=== PATIENT | female | born 1950 | race Caucasian/White ===

== ENCOUNTER 2020-07-26 22:13 | Emergency (ER) | payer MEDICARE ==
[~2020-07-26] VITALS: Ht 167.6 cm; Wt 74.8 kg
--- NOTE | 2020-07-26 22:16 | Emergency Department Note ---
History of Present Illnes History of Present Illness History of Present Illness This is a 70 year old female presents to the ED after her walker sliced the L: lower leg agt 2200 today. . Historian: Patient, Family Member Arrival Mode: Car Onset (how long ago): minute(s) Location: left leg Severity: moderate Onset quality: sudden Duration (how long): hour(s) Timing of current episode: constant Progression: unchanged Chronicity: new Context: Reports trauma/injury Relieving factors: none Exacerbating factors: none Associated symptoms: Reports denies other symptoms Treatments prior to arrival: none Past Medical/Family History Physician Review I have reviewed the patient's past medical and family history. Any updates have been documented here. Past Medical History Recent Fever: No Clinical Suspicion of Infectio: No New/Unexplained Change in Ment: No Past Medical History: Hypertension, [place], Hypothyroidism, Hyperlipedemia, Osteoarthritis Other Medical History: INESSA Past Surgical History: PCI Other Surgery: PCI WITH STENTS IN 05/2019 Social History Smoking Cessation: Never Smoker Alcohol Use: None Any Illegal Drug Use: No Other Last Tetanus: UNKNOWN Review of Systems Review of Systems Constitutional: Reports no symptoms EENTM: Reports no symptoms Cardiovascular: Reports no symptoms Respiratory: Reports no symptoms Gastrointestinal: Reports no symptoms Genitourinary: Reports no symptoms Musculoskeletal: Reports no symptoms Integumentary: Reports no symptoms Neurological: Reports no symptoms Psychological: Reports no symptoms Endocrine: Reports no symptoms Hematological/Lymphatic: Reports no symptoms Physical Exam Related Data Allergies: Coded Allergies: sulfamethoxazole (Verified Allergy, Mild, RASH, 09/12/19) trimethoprim (Verified Allergy, Mild, RASH, 09/12/19) Physical Exam CONSTITUTIONAL Constitutional: Present well-developed, Present well-nourished HENT HENT: Present normocephalic, Present atraumatic, Present oropharynx clear/moist, Present nose normal HENT L/R: Present left ext ear normal, Present right ext ear normal EYES Eyes: Reports PERRL, Reports conjunctivae normal NECK Neck: Present ROM normal PULMONARY Pulmonary: Present effort normal, Present breath sounds normal CARDIOVASCULAR Cardiovascular: Present regular rhythm, Present heart sounds normal, Present capillary refill normal, Present normal rate GASTROINTESTINAL Abdominal: Present soft, Present nontender, Present bowel sounds normal GENITOURINARY Genitourinary: Present exam deferred SKIN Skin: Present other (13 cm v shaped laceration with lateral border skin avulsion. Div[place]/skin avulsion medial 1 cm in diameter) MUSCULOSKELETAL Musculoskeletal: Present ROM normal NEUROLOGICAL Neurological: Present alert, Present oriented x 3, Present no gross motor or sensory deficits PSYCHOLOGICAL Psychological: Present mood/affect normal, Present judgement normal Procedures Laceration Laceration: Laceration 1 Site: lower extremity Side: left Size (cm): 13 Description: stellate Depth: simple, single layer Local anesthesia: lidocaine 1% Amount of anesthesia (mL): 5 Pre-repair: wound exposed Skin layer closed with: vicryl Size (cm): 4-0 Number of sutures: 10 Technique: simple, interrupted Assessment & Plan Medical Decision Making MDM Diff Dx : skin avulsion, laceration Assessment & Plan Final Impression: (1) Leg laceration SRAVAN CHERY DO Jul 26, 2020 22:16
[2020-07-26] MEDS: LIDOCAINE 1% 5ML-MPF INJ STA (23:10)
--- NOTE | 2020-07-26 23:16 | NUR ---
Lac repair done by Dr Hauser at bedside. Pt tolerated it well. Suture site cleansed & bulk dressing with roll gauze & paul wrap applied. Skin pink & cap refill WNL.
[2020-07-26] MEDS: TETANUS/DIPHTHERIA TOX ADULT 0.5 ML SYR IM ONE (23:25)
--- OUTSIDE RECORDS SUMMARY | 2020-07-26 23:34 | XMS REPORT | Continuity of Care Document ---
Author Author [facility] t Organization [facility] Address [address] [place] [address] Phone Unavailable Care Team Providers Care Brief Writer Name Role Phone NO, PCP PCP Unavailable Fawn DUBOIS Attphys Unavailable FABIENNE LOREDO M.D. Attphys Unavailable Payers Payer Name Policy Type Policy Number Effective Date Expiration Date Darius quintanilla [facility] [id number] 2019 00:00:00 [facility] Medicare A & B [id number] 2015 00:00:00 [facility] Problems Condition Name Condition Details Condition Category Status Onset Date Resolution Date Last Treatment Date Treating Clinician Comments Source Limb pain Limb pain Problem Active [facility] Allergies, Adverse Reactions, Alerts Allergy Name Allergy Type Status Severity Reaction(s) Onset Date Inacti ve Date Treating Clinician Comments Source sulfamethoxazole DA Active [place] 2020-04-14 00:00:00 [facility] trimethoprim DA [place] 2020-04-14 00:00:00 [facility] sulfamethoxazole DA Active [place] 2020-02-03 00:00:00 [facility] trimethoprim DA Active [place] 2020-02-03 00:00:00 [facility] Sulfamethoxazole Allergy to Substance Active Mild RASH 2019-09-12 00:00:00 [facility] Trimethoprim Allergy to Substance Active Mild RASH 2019-09-12 00:00:0 0 [facility] phenylephrine DA Active [place] 2014-02-03 00:00:[address] [facility] xylometazoline DA Active [place] 2014-02-03 00:00:[address] [facility] oxymetazoline DA Active [place] 2014-02-03 00:00:[address] [facility] Medications Ordered Medication Name Filled Medication Name Start Date Stop Da te Current Medication? Ordering Clinician Indication Dosage Frequency Signature (SIG) Comments Components Source Diclofenac Sodium 1 % Transdermal Gel Diclofenac Sodium 1 % Transdermal Gel 2017-07-13 00:00:00 Yes FABIENNE LOREDO M.D. QD APPLY TO LOWER EXTREMITIES, 4 GM OF GEL TO AFFECTED AREA 4 TIMES DAILY. DO NOT APPLY MORE THAN 16 GM DAILY TO ANY ONE AFFECTED JOINT. [facility] Vital Signs Vital Name Observation Time Observation Value Comments Source Height 2017-07-13 00:00:00 67 [in_us] [facility] Weight 2017-07-13 00:00:00 184 [lb_av] [facility] Body Mass Index Calculated 2017-07-13 00:00:00 28.82 kg/m2 [facility] Procedures Procedure Date / Time Performed Performing Clinician Sour e Computed tomography of chest with contrast 2019-09-12 00:00:00 ZULEMA POST [facility] Encounters Start Date/Time End Date/Time Encounter Type Admission Type Attendi [facility] Care Department Encounter ID Source 2019-05-15 16:29:00 Inpatient E [facility] CAR [id number] [facility] 2019-05-13 08:11:10 Outpatient [facility] MHSE [id number] [facility] 2019-03-25 08:01:14 Outpatient MHSE MHSE [id number] [facility] 2019-09-12 11:10:00 2019-09-12 15:23:00 Departed Emergency Room 1 ZULEMA DUBOIS [facility] [id number] [facility] 2019-04-09 06:46:00 2019-04-09 06:46:[address] [address] [id number] [facility] 2017-07-13 09:00:00 2017-07-13 09:00:00 Appointment; FABIENNE LOREDO M.D. HUANG, EDDIE, M.D. [facility] [id number] [facility] Results Test Description Test Time Test Comments Results Result Comments Source BASIC METABOLIC PANEL 2020-07-23 06:29:00 Test Item SODIUM (test code = NA) 141 mmol/L 136-145 N POTASSIUM (test code = K) 3.8 mmol/L 3.5-5.1 N CHLORIDE (test code = CL) 104.0 mmol/L 98-107 N CARBON DIOXIDE (test code = CO2) 29.3 mmol/L 21-32 N GLUCOSE (test code = GLU) 124 mg/dL 70-110 H BLOOD UREA NITROGEN (test code = BUN) 13 mg/dL 7-18 N GLOMERULAR FILTRATION RATE (test code = GFR) 102.8 >60 Unit of measure: mL/min/1.73 [id number] Range:Healthy Adults >90 mL/min/1.73 m2 For Chronic Kidney Disease: Stage II Mild Decrease in GFR 60-90 Stage III Moderate Decrease in GFR 30-59 Stage IV Severe Decrease in GFR 15-29 Stage V Kidney Failure <15 CREATININE (test code = CREAT) 0.58 mg/dL 0.55-1.30 N CALCIUM (test code = CA) 8.7 mg/dL 8.2-10.1 N CBC W/AUTO [id number] 05:55:00* Test Item Value Reference Range Interpretation Comments WHITE BLOOD CELL (test code = WBC) 13.5 K/mm3 5.8-11.0 H RED BLOOD CELL (test code = RBC) 3.84 M/mm3 4.2-5.4 L HEMOGLOBIN (test code = HGB) 11.4 g/dL 12-16 L HEMATOCRIT (test code = HCT) 35.5 % 37-47 L MEAN CELL VOLUME (test code = MCV) 92 fL 80-98 N MEAN CELL HGB (test code = MCH) 29.7 pg 27-34 N MEAN CELL HGB CONCENTRATION (test code = MCHC) 32.1 g/dL 30.8-34 .1 N RED CELL DISTRIBUTION WIDTH (test code = RDW) 14.7 % 11-16 N PLT (test code = PLT) 274 K/mm3 130-400 N MEAN PLATELET VOLUME (test code = MPV) 10.1 fL 8.9-12.1 N NEUTROPHIL % (test code = NT%) 84.8 % 45-70 H LYMPHOCYTE % (test code = LY%) 3.9 % 20-40 L MONOCYTE % (test code = MO%) 9.2 % 3-10 N EOSINOPHIL % (test code = EO%) 0.0 % 1-5 L BASOPHIL % (test code = BA%) 0.2 % 0.0-1.1 N NEUTROPHIL # (test code = NT#) 11.45 K/mm3 2.00-7.50 H LYMPHOCYTE # (test code = LY#) 0.53 K/mm3 1.50-4.00 L MONOCYTE # (test code = MO#) 1.24 K/mm3 0.2-0.8 H EOSINOPHIL # (test code = EO#) 0.00 K/mm3 0.04-0.4 L BASOPHIL # (test code = BA#) 0.03 K/mm3 0.02-0.10 N MANUAL DIFF REQUIRED (test code = MDIFF) NO MANUAL DIFF NUCLEATED RED BLOOD CELL (test code = NRBC) 0 % 0-0 N SPECIMEN COMMENT: POD #1- XR SHOULDER 1 V [id number] 11:38:00 [facility] 1950 Sex: F Patient Name: NINFA SIFUENTES Unit No: [id number] EXAMS: CPT CODE: [id number] XR SHOULDER 1 [place] [address]74 AP portable right shoulder COMMENT: The patient is status post reverse prosthesis placement which is articulating normally. at 1138 Reported and signed by: Víctor Mcmillan MD CC: Abran Perdue MD; Quinten Allison MD Technologist: BETHANY SALINAS (RT.R) Transcribed D/ (5634) Zhang.JCL [facility] NAME: NINFA SIFUENTES [address] [facility] [address] PHYS: Abran Claudio : 1950 AGE: 70 SEX: F [place] [address] LOC: Y.998 8 PHONE #: [phone] EXAM DATE: 07/22/2020 STATUS: ADM IN FAX #: [phone] RAD #: D/C DT PAGE 1 Si gned Report Patient Name: NINFA SIFUENTES Unit No: [id number] EXAMS: CPT CODE: [id number] XR SHOULDER 1 V RT 73 020 <Continued> Orig Print D/T: S: 07/22/2020 (3945) [facility] NAME: NINFA SIFUENTES [address] [facility] [address] PHYS: Abran Claudio : 1950 AGE: 70 SEX: F [place] [address] LOC: Y.998 8 PHONE #: [phone] EXAM DATE: 07/22/2020 STATUS: ADM IN FAX #: [phone] RAD #: D/C DT PAGE 2 Signed Report Novel Coronavirus 2018 [id number] 03:55:00 * Test Item Value Reference Range Interpretation Comments Novel Coronavirus 2019 Inhouse (test code = COVNONPUI) Negative Negative Positive results are indicative of the presence [id number]-ZbO-8 RNA, clinical correlation with patient historyand other diagnostic information is necessary to determinepatient infection status. Positive results do not rule outbacterial infection or co-infection with other viruses. Negative results do not preclude SARS-CoV-2 infection andshould not be used as the sole basis for patient managementdecisions. Negative results must be combined with otherclinical observations, patient history, and epidemiologicalinformation. Detection of SARS-CoV-2 RNA may be affected bysample collection methods, storage conditions, and/or stageof infection. Viral RNA mutations, vaccinations, antiviraltherapeutics, antibiotics, chemotherapeutic orimmunosuppressant drugs have not been evaluated for effectson detection. Results are for the identification of SARS-CoV-2 RNA usingthe Zafar M2000 System under the FDA Emergency UseAuthorization. The testing is performed by personneltrained in the procedures for the Zafar M2000 moleculardiagnostic SARS-CoV-2 assay in vitro. Novel Coronavirus 2019 [id number] 03:55:00* Test Item Value Reference Range Interpretation Comments Novel Coronavirus 2019 Inhouse (test code = COVNONPUI) Negative Negative Positive results are indicative of the presence abAXNS-GjG-2 RNA, clinical correlation with patient historyand other diagnostic information is necessary to determinepatient infection status. Positive results do not rule outbacterial infection or co-infection with other viruses. Negative results do not preclude SARS-CoV-2 infection andshould not be used as the sole basis for patient managementdecisions. Negative results must be combined with otherclinical observations, patient history, and epidemiologicalinformation. Detection of SARS-CoV-2 RNA may be affected bysample collection methods, storage conditions, and/or stageof infection. Viral RNA mutations, vaccinations, antiviraltherapeutics, antibiotics, chemotherapeutic orimmunosuppressant drugs have not been evaluated for effectson detection. Results are for the identification of SARS-CoV-2 RNA usingthe Zafar M2000 System under the FDA Emergency UseAuthorization. The testing is performed by personneltrained in the procedures for the Zafar M2000 moleculardiagnostic SARS-CoV-2 assay in vitro. COMPREHENSIVE METABOLIC [id number] 16:00:00* Test Item Value Reference Range Interpretation Comments SODIUM (test code = NA) 140 mmol/L 136-145 N POTASSIUM (test code = K) 4.0 mmol/L 3.5-5.1 N CHLORIDE (test code = CL) 103.0 mmol/L 98-107 N CARBON DIOXIDE (test code = CO2) 28.6 mmol/L 21-32 N GLUCOSE (test code = GLU) 93 mg/dL 70-110 N BLOOD UREA NITROGEN (test code = BUN) 11 mg/dL 7-18 N GLOMERULAR FILTRATION RATE (test code = GFR) 95.2 >60 Unit of measure: mL/min/1.73 [id number] Range:Healthy Adults >90 mL/min/1.73 m2 For Chronic Kidney Disease: Stage II Mild Decrease in GFR 60-90 Stage III Moderate Decrease in GFR 30-59 Stage IV Severe Decrease in GFR 15-29 Stage V Kidney Failure <15 CREATININE (test code = CREAT) 0.62 mg/dL 0.55-1.30 N TOTAL PROTEIN (test code = PROT) 6.1 g/dL 6.4-8.2 L ALBUMIN (test code = ALB) 3.6 g/dL 3.4-5.0 N GLOBULIN (test code = GLOB) 2.5 g/dL 2.2-4.2 N ALBUMIN/GLOBULIN RATIO (test code = A/G) 1.4 0.7-2.0 N CALCIUM (test code = CA) 9.1 mg/dL 8.2-10.1 N BILIRUBIN TOTAL (test code = BILT) 0.40 mg/dL 0.2-1.00 N SGOT/AST (test code = AST) 13.0 U/L 15-37 L SGPT/ALT (test code = ALT) 22.0 U/L 12-78 N P lease note new normal range. ALKALINE PHOSPHATASE TOTAL (test code = ALKP) 65 U/L 46-116 N PROTHROMBIN [id number] 15:36:00* Test Item Value Reference Range Interpretation Comments PROTHROMBIN TIME PATIENT (test code = PTP) 10.5 secs 10.1-12.5 N INTERNATIONAL NORMAL RATIO (test code = INR) 0.94 <2.0 RECOMMENDED THERAPEUTIC RANGE FOR ORAL ANTICOAGULANTTREATMENT: CONDITION INRProphylaxis of venous thrombosis in 2.0 - 3.0 high-risk medical or surgical patientsTreatment of venous thrombosis 2.0 - 3.0Prevention of embolism 2.0 - 3.0Prevention of recurrent embolism, or 3.0 - 4.5 patients with mechanical prosthetic intravascular valves IS PATIENT ON ANTICOAGULANTS ? YLIST ANTICOAGULANT/ANTI PLT MEDICATION : Plavix (Anti-PLT)Has Lab been notified if Patient is on Heparin Drip? NOIf Yes, order C BC, OCCULT BLOOD, PT every other day NTHROMBOPLASTIN TIME [id number] 15:36:00* Test Item Value Reference Range Interpretation Comments PTT ACTIVATED (test code = APTT) 31.0 secs 24.9-37.0 N IS PATIENT ON ANTICOAGULANTS ? YLIST ANTICOAGULANT/ANTI PLT MEDICATION : Plavix (Anti-PLT)Has Lab been notified if Patient is on Heparin Drip? NOIf Yes, order C BC, OCCULT BLOOD, PT every other day NCBC W/AUTO [id number] 15:22:00* Test Item Value Reference Range Interpretation Comments WHITE BLOOD CELL (test code = WBC) 7.9 K/mm3 5.8-11.0 N RED BLOOD CELL (test code = RBC) 4.39 M/mm3 4.2-5.4 N HEMOGLOBIN (test code = HGB) 13.0 g/dL 12-16 N HEMATOCRIT (test code = HCT) 41.2 % 37-47 N MEAN CELL VOLUME (test code = MCV) 94 fL 80-98 N MEAN CELL HGB (test code = MCH) 29.6 pg 27-34 N MEAN CELL HGB CONCENTRATION (test code = MCHC) 31.6 g/dL 30.8-34 .1 N RED CELL DISTRIBUTION WIDTH (test code = RDW) 14.7 % 11-16 N PLT (test code = PLT) 296 K/mm3 130-400 N MEAN PLATELET VOLUME (test code = MPV) 9.4 fL 8.9-12.1 N NEUTROPHIL % (test code = NT%) 81.7 % 45-70 H LYMPHOCYTE % (test code = LY%) 9.3 % 20-40 L MONOCYTE % (test code = MO%) 7.4 % 3-10 N EOSINOPHIL % (test code = EO%) 0.4 % 1-5 L BASOPHIL % (test code = BA%) 0.4 % 0.0-1.1 N NEUTROPHIL # (test code = NT#) 6.43 K/mm3 2.00-7.50 N LYMPHOCYTE # (test code = LY#) 0.73 K/mm3 1.50-4.00 L MONOCYTE # (test code = MO#) 0.58 K/mm3 0.2-0.8 N EOSINOPHIL # (test code = EO#) 0.03 K/mm3 0.04-0.4 L BASOPHIL # (test code = BA#) 0.03 K/mm3 0.02-0.10 N MANUAL DIFF REQUIRED (test code = MDIFF) NO MANUAL DIFF NUCLEATED RED BLOOD CELL (test code = NRBC) 0 % 0-0 N - CT UP EXTREM W/O CONT [id number] 13:32:00 [facility] : 1950 Sex: F Patient Name: NINFA SIFUENTES Unit No: [id number] EXAMS: CPT CODE: [id number] CT UP EXTREM W/[place] [address] CT OF THE RIGHT SHOULDER WITH SAGITTAL AND HERNANDEZ L RECONSTRUCTIONS DIAGNOSIS: 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 The fracture fragment is dis placed anteriorly and superiorly in the joint. Erosion of the neck is see n in the humeral neck is articulating with the glenoid. Multiple loose mark dies are present. COMMENT: COMPARISON: No prior exam s available. Scans were performed with thin sections and reconstru ctions were obtained. CT radiation dose optimization is achieved for this examination by the use of a CT protocol in accordance with ACR pract ice standards and adherence to machine packer's recommendations. A chronic ununited fracture is present as described. There is no evidence for rotator cuff atrophy. at 1332 Reported and signed by: Víctor Mcmillan MD CC: Abran Perdue MD; Quinten Allison MD Techn ologist: Ayde Ng(R) CTDI: DLP: Trnscrpt: 06/05 (1332) MiracleJCL [facility] NAME: NINFA SIFUENTES [address] PHYS: Abran Claudio OB: 1950 AGE: 70 SEX: F [place], [place] [address] LOC: Y.RAD PHONE #: [phone] EXAM DATE: 06/25/2020 STATUS: REG CLI FAX #: [phone] RAD #: D/C DT PAGE 1 Signed Report Patient Name: NINFA SIFUENTES Unit No: [id number] EXAMS: CPT CODE: [id number] CT UP EXTREM W/[place] [address] < Continued> Orig Print D/T: S: 06/25/2020 (1335) [facility] NAME: NINFA SIFUENTES [address] [facility] [address] PHYS: EDWTH - Abran Perdue : 1950 AGE: 70 SEX: F [place], [place] [address] LOC: Y.RAD PHONE #: [phone] EXAM DATE: 06/25/2020 STATUS: REG CLI FAX #: [phone] RAD #: D/C DT PAGE 2 Signed Report - XR FLUORO FOR SPINE [id number] 08:23:00 Patient Name: NINFA SIFUENTES Unit No: [id number] EXAMS: CPT CODE: [id number] XR FLUORO FOR SPINE INJ 30005 LUMBAR TRANSFORAMINAL INJECTION REFERRING PHYSICIAN: PREOPERATIVE DIAGNOSIS: Degenerative Lumbar Disc Disease. POSTOPERATIVE DIAGNOSIS: Lumbar radiculopathy PROCEDURES PERFORMED 1. Fluoroscopically guided needle localization of the bilateral L4, bilateral L5 spinal nerve /nerves with transforaminal epidural steroid injection/injections. 2. Transforaminal epidurogram/epidurograms at bilateral L4, bila teral L5. FINDINGS: Poor filling bilateral L4, bilateral L5. Conc ordant provocation L5 hips. Pain relief-100%. ANTIBIOTIC: C efazolin ESTIMATED BLOOD LOSS: Minimal ANESTHESIA: ( TIVA )Total intravenous anesthetic (patient intolerant to sedatives and hy pnotics) COMPLICATIONS: None DETAILS OF PROCEDURE: A fter obtaining stable vital signs, informed consent and IV access, with no known contraindications to proceeding, the patient was taken to the fluor oscopy suite and placed in a prone position with all extremities padded an d appropriate monitors placed. A sterile prep and drape was performed over the lumbosacral spine. Using fluoroscopic visualization at each l evel the insertion site was marked for a paravertebral approach to the for amen. Using standard technique, a 25 gauge needle was advanced to the base of the pedicle. In AP view, final positioning was obtained outside the 6 on the clock position on the pedicle. Then, 1 ml of Isovue-300 contrast wa s injected to produce the epidurograms. No paresthesias were elicited with needle insertion or injection and there were no signs of intravascu lar or intrathecal uptake. Then, with 1 ml of 4% lidocaine and 10 mg of triamcinolone was injected incrementally with frequent negative aspiration s. There were no signs of intravascular or intrathecal uptake. Each subseq uent level was done using the same technique and medications. The patient' s vital signs remained stable. The patient was taken to the PACU in good c ondition. at 0823 Reported and signed by: Gabriele Borden M.D. [facility] [place] NAME: NINFA SIFUENTES [address] [facility] PHYS: Gabriele Beckman MD [place] [address] : 1950 AGE: 69 SEX: F LOC: MARTHA PHONE #: EXAM DATE: 05/21/2020 STATUS: REG [facility] FAX #: [phone] RAD #: D/C DT PAGE 1 Signed Report (CONTINUED) Patient Name: NINFA SIFUENTES RAO Unit No: [id number] EXAMS: CPT CODE: [id number] XR FLUORO FOR SPINE INJ 54447 <Continued> CC: Quinten Allison MD Technologist: Marie Messer(R) Transcribed D/ (08) tSOPHIE [facility] NAME: NINFA SIFUENTESANNE MARIE [address] [facility] PHYS: Gabriele Beckman MD [place] [address] : 1950 AGE: 69 SEX: F LOC: MARTHA PHONE #: [phone] EXAM DATE: 05/21/2020 STATUS: REG SD FAX #: [phone] RAD #: D/C DT PAGE 2 Signed Report Patient Name: NINFA SIFUENTES Unit No: [id number] EXAMS: CPT CODE: [id number] XR FLUORO FOR SPINE INJ 43521 <Continued> Orig Print D/T: S: 05/21/2020 (0826) [facility] NAME: NINFA SIFUENTES [address] [facility] [address] PHYS: DOCUD - Doctor,Gabriele Joaquin MD [place], [place] [address] : 1950 AGE: 69 SEX: F LOC: MARTHA PHONE #: [phone] EXAM DATE: 05/21/2020 STATUS: REG SDC FAX #: [phone] RAD #: D/C DT PAGE 3 Signed Report - MRI L-SPINE W/O [id number] 11:25:00 Patient Name: NINFA SIFUENTES Unit No: [id number] EXAMS: CPT CODE: [id number] MRI L-SPINE W/O CONT 44259 DIAGNOSIS: 1. At L1-2 there is a grade 1 retrolisthesis with associated disc bulging. No canal or foraminal narrowing is seen. 2. At L2-3 there is a grade 1 retrolisthesis and associated disc bulging with mild foraminal narrowing. Slight narrowing of the central canal is seen. 3. At L3-4 there is disc bulging and endplate spur formation with retrolisthesis lateralizing 3 mm into the left neural foramen. Moderate left foraminal narrowing is seen with mild to moderate right-sided stenosis. Moderate to marked central canal stenosis is present with facet and ligamentum flavum hypert rophic and degenerative change. 4. At L4-5 there is broad-based dis c lateralizing 6 mm into the foramina with moderate left foraminal narrowi ng and marked right-sided stenosis. There is severe central canal stenosi s with facet and ligamentum flavum hypertrophic and degenerative change wh ich is asymmetrically greater on the right. 5. At L5-S1 there is 3 mm of posterior central disc bulging. Mild left foraminal narrowing is se en without right-sided stenosis. Mild central canal stenosis is present w ith facet and ligamentum flavum hypertrophic and degenerative change. COMMENT: COMPARISON: No prior exams available. Scans were performed in the sagittal and axial planes utilizing T1, T2 and inversion recovery images. Endplate and disc degeneration is present from L1 to S1. There is a scoliosis convex left. Disc configurat ions are as described. Spondylitic changes are as noted. The conus is in t he expected location. The description these findings assumes a normal coun t of 5 lumbar type vertebra. at 1125 Reported and signed by: Víctor Mcmillan MD CC: Gabriele Borden MD Technologi st: RICHARD ROSALES, MRI Transcribed D/T: 12/2019 (6576) [facility] NAME: NINFA SIFUENTES [address] [facility] PHYS: Gabriele Beckman MD : 1950 AGE: 69 SEX: F [place] [address] ACCT N O: [id number] LOC: Y.MRI PHONE #: [phone] EXAM DATE: 05/08/2020 STATUS: REG CLI FAX #: [phone] RAD #: D/C DT PAGE 1 Signed Report Patient Name: NINFA SIFUENTES Unit No: [id number] EXAMS: CPT CODE: [id number] MRI L-SPINE W/O CONT 36982 < Continued> Orig Print D/T: S: 05/08/2020 (6375) [facility] NAME: NINFA SIFUENTES [address] [place] [address] PHYS: Gabriele Beckman MD : 1950 AGE: 69 SEX: F [place] [address] LOC: Y.MRI PHONE #: [phone] EXAM DATE: 05/08/2020 STATUS: REG CLI FAX #: [phone] RAD #: D/C DT PAGE 2 Signed Report - MRI UP JNT W/O CONT [id number] 11:00:00 Patient Name: NINFA SIFUENTES Unit No: [id number] EXAMS: CPT CODE: [id number] [place] JNT W/[place] [address] MRI OF THE RIGHT SHOULDER DIAGNOSIS: There is severe deformity of the humeral head with complete loss of the articular component. There is tendinosis involving the supraspinatus, infraspinatus and subscapularis tendons. The biceps tendon is intact. Moderate atrophy of supraspinatus and inf raspinatus muscles is seen with mild to moderate atrophy of the subscapula ris muscle. Loose bodies are seen in the axillary recess of a very large subacromial/subdeltoid bursal effusion is present consistent with bu rsitis. A joint effusion is also present. COMMENT: COMPARISON: No prior exams available. Scans were performed in the paracoronal, parasagittal and axial planes utilizing T1 , spin density wit h fat saturation and T2-weighting with and without fat saturation. The rotator cuff is as described. The acromion is horizontal with AC joint degenerative change. The glenohumeral joint is markedly abnormal as noted. at 1100 Reported and signed by: Víctor Mcmillan MD CC: Kvng Borden MD Technologist: Cris ROSALES, MRI Transcribed D/ (1100 ) [email or web address] [facility] NAM E: NINFA SIFUENTES [address] [facility] PHYS: DO CUD - DoctorGabriele MD : [birth year] AGE: 69 SEX: F [place] [address] LOC: Y.MRI PHONE #: [phone] EXAM DATE: 05/08/2020 S TATUS: REG CLI FAX #: [phone] RAD #: D/C DT PAGE 1 Signed Report Patient Name: NINFA SIFUENTES Unit No: [id number] EXAMS: CPT CODE: [id number] [place] JNT W/[place] [address] <Continued> Orig Print D/T: S: 05/08/2020 (1103) [facility] NAME: RIANNA SIFUENTES [facility] [address] [facility] PHYS: DOCUD - Doct Gabriele dias MD : 1950 AGE: 69 SEX: F [place] [address] LOC: Y. MRI PHONE #: [phone] EXAM DATE: 05/08/2020 STATUS: REG CLI FAX #: [phone] RAD #: D/C DT PAGE 2 Signed Report - XR FLUORO FOR SPINE [id number] 12:13:00 Patient Name: NINFA SIFUENTES Unit No: [id number] EXAMS: CPT CODE: [id number] XR FLUORO FOR SPINE INJ 99121 CERVICAL TRANSFORAMINAL INJECTION REFERRING PHYSICIAN: PREOPERATIVE DIAGNOSIS: Cervical radiculitis POSTOPERATIVE DIAGNOSIS: Bilateral cervical radiculopathy PROCEDURES PERFORMED: Fluoroscopically guided needle localization of the bilateral C6, bilateral C7 spinal nerves with transforaminal epidural steroid injection/injections. 2. Transforaminal epidurogram/epidurograms at bilateral C6, bilateral C7 FINDINGS: Poor filling all. Concordant provocation right C7 posterior shoulder, right C6 arm. Pain relief-100%. ANTIBIOTICS:Cefazolin ESTIMATED BLOOD LOSS: Minimal ANESTHESIA: (TIVA ) Total intravenous anesthetic (patient intolerant to sedatives and hypnotics) COMPLICATIONS: None DETAILS OF PROCEDURE: After obtaining stable vital signs, informed consent and IV access, with no known contraindications to proceeding, the patient was taken to the fluoroscopy suite and placed in a supine position with all extremities padded and appropriate monitors placed. A sterile prep and drape was performed over the cervical spine. Using fluoroscopic visualization at each level the insertion site was marked for a pa ravertebral approach to the foramen. Using standard technique, a 27gauge n eedle was advanced to the base of the pedicle. In AP view, final positioni ng was obtained outside the 6 on a clock position on the pedicle. Then, 0. 5 ml of Isovue-300 contrast was injected to produce the epidurograms. No p aresthesias were elicited with needle insertion or injection and there wer e no signs of intravascular or intrathecal uptake. Then, 0.5 ml of 4% lido leatha was injected as a test dose with no signs of intravascular or intrat hecal uptake. Next, 10 mg of Decadron was injected incrementally with frequent negative aspirations.Each subsequent cervical nerve root sle di was done with the same technique and medications were used.There were no signs of intravascular or intrathecal uptake. The patient's vital signs remained stable. The patient was taken to the PACU in good condition. [facility] NAME: NINFA SIFUENTES [address] [facility] PHYS: DOCUD - Doctor,Gabriele Joaquin MD [place] [address] : 1950 AGE: 69 SEX: F LOC: MARTHA PHONE #: [phone] EXAM DATE: 04/14/2020 STATUS: REG [facility] FAX #: [phone] RAD #: D/C DT PAGE 1 Signed Report (CONTINUED) Patient Name: NINFA SIFUENTES Unit No: [id number] EXAMS: CPT CODE: [id number] XR FLUORO FOR SPINE INJ 43687 <Continued> at 1213 Reported and signed by: Gabriele Borden M.D. CC: Technologist: Marie Messer(R) Transcribed D/ (1213) Adele [facility] NAME: NINFA SIFUENTES [address] [facility] PHYS: Gabriele Beckman MD [place] [address] : 1950 AGE: 69 SEX: F LOC: MARTHA PHONE #: [phone] EXAM DATE: 04/14/2020 STATUS: REG [facility] FAX #: [phone] RAD #: D/C DT PAGE 2 Signed Report Patient Name: NINFA SIFUENTES Unit No: [id number] EXAMS: CPT CODE: [id number] XR FLUORO FOR SPINE INJ 75583 <Continued> Orig Print D/T: S: 04/14/2020 (1216) [facility] NAME: NINFA SIFUENTES [address] [facility] PHYS: Gabriele Beckman MD [place] [address] : 1950 AGE: 69 SEX: F LOC: MARTHA PHONE #: [phone] EXAM DATE: 04/14/2020 STATUS: REG [facility] FAX #: [phone] RAD #: D/C DT PAGE 3 Signed Report BASIC METABOLIC [id number] 06:47:00* Test Item Value Reference Range Interpretation Comments SODIUM (test code = NA) 145 mmol/L 136-145 N POTASSIUM (test code = K) 3.6 mmol/L 3.5-5.1 N CHLORIDE (test code = CL) 106.0 mmol/L 98-107 N CARBON DIOXIDE (test code = CO2) 27.7 mmol/L 21-32 N GLUCOSE (test code = GLU) 117 mg/dL 70-110 H BLOOD UREA NITROGEN (test code = BUN) 20 mg/dL 7-18 H GLOMERULAR FILTRATION RATE (test code = GFR) 77.8 >60 Unit of measure: mL/min/1.73 f3Igiulcqzw Range:Healthy Adults >90 mL/min/1.73 m2 For Chronic Kidney Disease: Stage II Mild Decrease in GFR 60-90 Stage III Moderate Decrease in GFR 30-59 Stage IV Severe Decrease in GFR 15-29 Stage V Kidney Failure <15 CREATININE (test code = CREAT) 0.74 mg/dL 0.55-1.30 N CALCIUM (test code = CA) 8.4 mg/dL 8.2-10.1 N HGB [id number] 05:44:00* Test Item Value Reference Range Interpretation Comments HEMOGLOBIN (test code = HGB) 14.4 g/dL 12-16 N HEMATOCRIT (test code = HCT) 43.0 % 37-47 N - XR KNEE 1 OR 2 V [id number] 11:11:00 Patient Name: NINFA SIFUENTES Unit No: [id number] EXAMS: CPT CODE: [id number] XR KNEE 1 [place] 2 [place] [address]72 LEFT KNEE 2 VIEWS PORTABLE COMMENT: The patient is status post joint replacement which is articulating normally. at 1111 Reported and signed by: Víctor Mcmillan MD CC: Buddy Lopez MD Technologist: BETHANY SALINAS (RT.R) Transcribed D/ (1111) [email or web address] [facility] NAME: NINFA SIFUENTES [address] [facility] PHYS: Buddy Joseph MD : 1950 AGE: 69 SEX: F [place], [place] [address] LOC: Y.313 A PHONE #: [phone] EXAM DATE: 02/18/2020 STATUS: ADM IN FAX #: [phone] RAD #: D/C DT PAGE 1 Signed Report Patient Name: NINFA SIFUENTES Unit No: [id number] EXAMS: CPT CODE: [id number] XR KNEE 1 OR 2 [place] [address] <Continued> Orig Print D/T: S: 02/18/2020 (1354) [facility] NAME: NINFA SIFUENTES [address] [facility] PHYS: Buddy Joseph MD : 1950 AGE: 69 SEX: F [place], [place] [address] LOC: Y.313 A PHONE #: [phone] EXAM DATE: 02/18/2020 STATUS: ADM IN FAX #: [phone] RAD #: D/C DT PAGE 2 Signed Report Novel Coronavirus 2018 Nymgwhl8376-53-24 16:28:00 * Test Item Value Reference Range Interpretation Comments Novel Coronavirus 2019 Inhouse (test code = COVNONPUI) Negative Negative Novel Coronavirus 2019 Sozyjgh2658-16-47 16:27:00* Test Item Value Reference Range Interpretation Comments Novel Coronavirus 2018 Inhouse (test code = COVNONPUI) Negative Negative COMPREHENSIVE METABOLIC [id number] 18:05:00* Test Item Value Reference Range Interpretation Comments SODIUM (test code = NA) 142 mmol/L 136-145 N POTASSIUM (test code = K) 4.6 mmol/L 3.5-5.1 N CHLORIDE (test code = CL) 104.0 mmol/L 98-107 N CARBON DIOXIDE (test code = CO2) 29.3 mmol/L 21-32 N GLUCOSE (test code = GLU) 105 mg/dL 70-110 N BLOOD UREA NITROGEN (test code = BUN) 23 mg/dL 7-18 H GLOMERULAR FILTRATION RATE (test code = GFR) 74.3 >60 Unit of measure: mL/min/1.73 k4Iylsxdqua Range:Healthy Adults >90 mL/min/1.73 m2 For Chronic Kidney Disease: Stage II Mild Decrease in GFR 60-90 Stage III Moderate Decrease in GFR 30-59 Stage IV Severe Decrease in GFR 15-29 Stage V Kidney Failure <15 CREATININE (test code = CREAT) 0.77 mg/dL 0.55-1.30 N TOTAL PROTEIN (test code = PROT) 6.5 g/dL 6.4-8.2 N ALBUMIN (test code = ALB) 3.9 g/dL 3.4-5.0 N GLOBULIN (test code = GLOB) 2.6 g/dL 2.2-4.2 N ALBUMIN/GLOBULIN RATIO (test code = A/G) 1.5 0.7-2.0 N CALCIUM (test code = CA) 9.1 mg/dL 8.2-10.1 N BILIRUBIN TOTAL (test code = BILT) 0.50 mg/dL 0.2-1.00 N SGOT/AST (test code = AST) 15.0 U/L 15-37 N SGPT/ALT (test code = ALT) 40.0 U/L 12-78 N P lease note new normal range. ALKALINE PHOSPHATASE TOTAL (test code = ALKP) 50 U/L 46-116 N CBC W/AUTO [id number] 16:31:00* Test Item Value Reference Range Interpretation Comments WHITE BLOOD CELL (test code = WBC) 11.5 K/mm3 5.8-11.0 H RED BLOOD CELL (test code = RBC) 4.87 M/mm3 4.2-5.4 N HEMOGLOBIN (test code = HGB) 15.1 g/dL 12-16 N HEMATOCRIT (test code = HCT) 45.2 % 37-47 N MEAN CELL VOLUME (test code = MCV) 93 fL 80-98 N MEAN CELL HGB (test code = MCH) 31.0 pg 27-34 N MEAN CELL HGB CONCENTRATION (test code = MCHC) 33.4 g/dL 30.8-34 .1 N RED CELL DISTRIBUTION WIDTH (test code = RDW) 14.6 % 11-16 N PLT (test code = PLT) 298 K/mm3 130-400 N MEAN PLATELET VOLUME (test code = MPV) 9.9 fL 8.9-12.1 N NEUTROPHIL % (test code = NT%) 78.6 % 45-70 H LYMPHOCYTE % (test code = LY%) 8.4 % 20-40 L MONOCYTE % (test code = MO%) 11.1 % 3-10 H EOSINOPHIL % (test code = EO%) 0.1 % 1-5 L BASOPHIL % (test code = BA%) 0.3 % 0.0-1.1 N NEUTROPHIL # (test code = NT#) 9.07 K/mm3 2.00-7.50 H LYMPHOCYTE # (test code = LY#) 0.97 K/mm3 1.50-4.00 L MONOCYTE # (test code = MO#) 1.28 K/mm3 0.2-0.8 H EOSINOPHIL # (test code = EO#) 0.01 K/mm3 0.04-0.4 L BASOPHIL # (test code = BA#) 0.03 K/mm3 0.02-0.10 N MANUAL DIFF REQUIRED (test code = MDIFF) NO MANUAL DIFF NUCLEATED RED BLOOD CELL (test code = NRBC) 0 % 0-[address] CHEST [id number] 14:26:00 [place] [address] Patient Name: NINFA SIFUENTES MR #: [id number] : 1950 Age/Sex: 69/F Req #: [id number] Adm Physician: Ordered by: ZULEMA DUBOIS MD Report #: [id number] Location: ER Room/Bed: Procedure: [id number] CT/CT CHEST W Exam Date: Exam Time: REPORT STATUS: Signed EXAM: CT Chest WITH contrast- Pulmonary Embolism Protocol INDICATION: Chest pain COMPARISON: Chest radiograph earlier the same day TECHNIQUE: Chest was scanned utilizing a multidetector helical scanner from the lung apex through the level of the adeel phragm after administration of IV contrast. Thin section reconstructions were obtained with special concentration on the pulmonary arteries. Coronal and sag ittal reformations were obtained. Pulmonary embolism protocol was performed. IV CONTRAST: 100 cc of Isovue 370 RADIATION DOSE: Total DLP: 571.6 mGy*cm Dose modulation, iterative reconstruction, a nd/or weight based adjustment of the mA/kV was utilized to reduce the radiatio n dose to as low as reasonably achievable. COMPLICATIONS: Non e FINDINGS: LINES/ TUBES: None. PULMONARY ARTERIES: No filling de fect is identified within the pulmonary arteries to the segmental level. The s ubsegmental pulmonary arteries are not well opacified. Main pulmonary artery m easures 3.2 cm in diameter. LUNGS AND AIRWAYS: The central airways are hoff nt. No focal consolidation. No pulmonary edema. Bibasilar dependent subsegment al atelectasis. PLEURA: The pleural spaces are clear. HEART AND MEDIAS TINUM: The thyroid gland is normal. No mediastinal, hilar or axillary lymphad enopathy. The heart is normal in size.. There is no pericardial effusion. The esophagus is patulous with dependent layering fluid in the distal esophagus.. UPPER ABDOMEN: Limited images of the upper abdomen demonstrate multiple simple cysts in the liver. Multiple gallstones in the gallbladder. No CT evide nce of cholecystitis. No focal abnormality of the partially visualized pancrea s, kidneys, or bowel. 1 cm low-density left adrenal nodule, likely a benign adenoma. This does not require further follow-up imaging. BONES: The visual ized bony thorax is within normal limits. SOFT TISSUES: Unremarkable. IMPRESSION: No pulmonary embolism. No focal consolidation or pulmonary e jonathan. Signed by: Sena Quiles MD on 09/12/2019 2:31 PM Dictated By: MACARIO QUILES MD 1431 Transcribe d By: MARYA on 09/12/19 1431 COPY TO: ZULEMA DUBOIS MD B-Type Natriuretic Helajog9132-17-15 12:21:00* Test Item Value Reference Range Interpretation Comments B-Type Natriuretic Peptide (test code = 88328-8) 87.2 0-100 [facility] Kin[facility] [id number] 12:12:00* Test Item Value Reference Range Interpretation Comments Creatine Kinase MB (test code = 38283-0) 1.10 0-5.0 [facility] HospitalTroponin [id number] 12:12:00* Test Item Value Reference Range Interpretation Comments Troponin I (test code = RHG6479) < 0.001 0-0.300 [facility] Hospital[facility]rine [id number] 12:11:00* Test Item Value Reference Range Interpretation Comments Urine WBC (test code = 5821-4) 0-5 0-5 [facility] [id number] 12:11:00* Test Item Value Reference Range Interpretation Comments Urine RBC (test code = 31436-1) 0-5 0-5 [facility] Vwehnkvw5247-75-99 12:11:00* Test Item Value Reference Range Interpretation Comments Urine Bacteria (test code = 55981-8) FEW NONE [facility] Hospital[facility] Epithelial Rsnny5167-58-37 12:11:00 * Test Item Value Reference Range Interpretation Comments Urine Epithelial Cells (test code = 88218-0) FEW NONE [facility] Abtpm8474-35-33 12:05:00* Test Item Value Reference Range Interpretation Comments Sodium Level (test code = 2951-2) 139 136-145 [facility]assium Zlljc4948-66-12 12:05:00* Test Item Value Reference Range Interpretation Comments Potassium Level (test code = 2823-3) 3.3 3.5-5.1 L [facility] HospitalChloride Luuzr4991-11-87 12:05:00* Test Item Value Reference Range Interpretation Comments Chloride Level (test code = 2075-0) 103 98-107 [facility] HospitalCarbon Dioxide Vfwka3614-61-64 12:05:00* Test Item Value Reference Range Interpretation Comments Carbon Dioxide Level (test code = 2028-9) 24 22-29 [facility] HospitalAnion Ibq7207-79-83 12:05:00* Test Item Value Reference Range Interpretation Comments Anion Gap (test code = 16048-0) 15.3 8-16 [facility] HospitalBlood Urea Zunnlati6945-78-49 12:05:00* Test Item Value Reference Range Interpretation Comments Blood Urea Nitrogen (test code = 3094-0) 12 7-26 [facility] HospitalCreatinine2020-01-09 12:05:00* Test Item Value Reference Range Interpretation Comments Creatinine (test code = 2160-0) 0.78 0.57-1.11 [facility] HospitalBUN/Creatinine Cloam0096-55-18 12:05:00* Test Item Value Reference Range Interpretation Comments BUN/Creatinine Ratio (test code = 3097-3) 15 6-25 [facility] HospitalEstimat Glomerular Filtration Rate 2019-09-12 12:05:00* Test Item Value Reference Range Interpretation Comments Estimat Glomerular Filtration Rate (test code = 710167512) > 60 >60 Ranges were taken from the National Kidney Disease Education Program and the [facility] access hospital Kidney Foundation literature.Reference ranges:60 or greater: Wpsvmh32-23 ( for 3 consecutive months): Chronic kidney disease 15 or less: Kidney failureHouston [facility] West HospitalGlucose Ojbso9040-99-74 12:05:00* Test Item Value Reference Range Interpretation Comments Glucose Level (test code = LEY5849) 127 74-118 H [facility] HospitalCalcium Kepcd1187-86-80 12:05:00* Test Item Value Reference Range Interpretation Comments Calcium Level (test code = 98552-2) 9.8 8.4-10.2 [facility] HospitalMagnesium Lyqmm1814-42-25 12:05:00* Test Item Value Reference Range Interpretation Comments Magnesium Level (test code = 70741-1) 1.8 1.3-2.1 [facility] HospitalTotal Skctfaphl1413-88-93 12:05:00* Test Item Value Reference Range Interpretation Comments Total Bilirubin (test code = 1975-2) 0.5 0.2-1.2 [facility] HospitalAspartate Amino Transf (AST/SGOT) 2019-09-12 12:05:00* Test Item Value Reference Range Interpretation Comments Aspartate Amino Transf (AST/SGOT) (test code = Aspartate Amino Transf (AST/SGOT)) 18 5-34 [facility] HospitalAlanine Aminotransferase (ALT/SGPT) 2019-09-12 12:05:00* Test Item Value Reference Range Interpretation Comments Alanine Aminotransferase (ALT/SGPT) (test code = 1742-6) 27 0-55 [facility] HospitalTotal Kzbfzsz6531-58-72 12:05:00* Test Item Value Reference Range Interpretation Comments Total Protein (test code = 2885-2) 7.5 6.5-8.1 [facility] HospitalAlbumin2020-01-09 12:05:00* Test Item Value Reference Range Interpretation Comments Albumin (test code = 1751-7) 4.2 3.5-5.0 [facility] HospitalGlobulin2020-01-09 12:05:00* Test Item Value Reference Range Interpretation Comments Globulin (test code = 16460-8) 3.3 2.3-3.5 [facility] HospitalAlbumin/Globulin Nyadb7747-70-18 12:05:00 * Test Item Value Reference Range Interpretation Comments Albumin/Globulin Ratio (test code = 1759-0) 1.3 0.8-2.0 [facility] HospitalAlkaline Zntokaptnqw1525-83-86 12:05:00* Test Item Value Reference Range Interpretation Comments Alkaline Phosphatase (test code = 6768-6) 74 40-150 [facility] HospitalCreatine Amwhnl0687-13-14 12:05:00* Test Item Value Reference Range Interpretation Comments Creatine Kinase (test code = 2157-6) 51 29-168 [facility] HospitalProthrombin Daas8461-89-73 11:58:00* Test Item Value Reference Range Interpretation Comments Prothrombin Time (test code = 5902-2) 12.2 11.9-14.5 [facility] HospitalProthromb Time International Ratio 2019-09-12 11:58:00* Test Item Value Reference Range Interpretation Comments Prothromb Time International Ratio (test code = 6301-6) 0.86 Oral Anticoagulant Therapy INR Values:1. Low Intensity Therapy 1.5 - 2.02 . Moderate Intensity Therapy 2.0 - 3.03. High Intensity Therapy(1) 2.5 - 3. 54. High Intensity Therapy(2) 3.0 - 4.05. Panic Value INR > 5.0 [facility] HospitalActivated Partial Thromboplast Time 2019-09-12 11:58:00* Test Item Value Reference Range Interpretation Comments Activated Partial Thromboplast Time (test code = 42993-0) 26.4 23.8-35.5 [facility] HospitalUrine Vkoeu4180-25-10 11:55:00* Test Item Value Reference Range Interpretation Comments Urine Color (test code = 5778-6) YELLOW YELLOW [facility] HospitalUrine Imcbqvz9004-18-86 11:55:00* Test Item Value Reference Range Interpretation Comments Urine Clarity (test code = 66699-6) CLEAR CLEAR [facility] Specific Zhgtcty4448-60-62 11:55:00 * Test Item Value Reference Range Interpretation Comments Urine Specific [place] (test code = 5811-5) 1.030 1.010-1.02 5 H [facility] HospitalUrine pB8207-81-17 11:55:00* Test Item Value Reference Range Interpretation Comments Urine pH (test code = 56920-8) 7 5-7 [facility] Leukocyte Qnkqcgru5015-56-12 11:55:00* Test Item Value Reference Range Interpretation Comments Urine Leukocyte Esterase (test code = 5799-2) NEGATIVE NEGATIVE [facility] HospitalUrine Pwxfzmk8589-39-82 11:55:00* Test Item Value Reference Range Interpretation Comments Urine Nitrite (test code = 76692-4) NEGATIVE NEGATIVE [facility] HospitalUrine Qzlxwul5962-79-87 11:55:00* Test Item Value Reference Range Interpretation Comments Urine Protein (test code = 5804-0) NEGATIVE NEGATIVE [facility] HospitalUrine Glucose (UA)2019-09-12 11:55:00* Test Item Value Reference Range Interpretation Comments Urine Glucose (UA) (test code = 2349-9) NEGATIVE NEGATIVE [facility] HospitalUrine Owcvkcv9777-27-63 11:55:00* Test Item Value Reference Range Interpretation Comments Urine Ketones (test code = 60772-0) NEGATIVE NEGATIVE [facility] HospitalUrine Sddajnztmcdz0151-67-89 11:55:00* Test Item Value Reference Range Interpretation Comments Urine Urobilinogen (test code = 68875-5) 0.2 0.2-1 [facility] HospitalUrine Zbygtullx9916-63-47 11:55:00* Test Item Value Reference Range Interpretation Comments Urine Bilirubin (test code = 1978-6) NEGATIVE NEGATIVE [facility] HospitalUrine Hdyyb6886-74-33 11:55:00* Test Item Value Reference Range Interpretation Comments Urine Blood (test code = 99493-0) NEGATIVE NEGATIVE [facility] HospitalWhite Blood Wacce0452-75-73 11:46:00* Test Item Value Reference Range Interpretation Comments White Blood Count (test code = 6690-2) 11.03 4.8-10.8 H [facility] HospitalRed Blood Ttzrq0701-56-21 11:46:00* Test Item Value Reference Range Interpretation Comments Red Blood Count (test code = 789-8) 5.24 3.6-5.1 H [facility] HospitalHemoglobin2020-01-09 11:46:00* Test Item Value Reference Range Interpretation Comments Hemoglobin (test code = 46349-8) 14.4 12.0-16.0 [facility] HospitalHematocrit2020-01-09 11:46:00* Test Item Value Reference Range Interpretation Comments Hematocrit (test code = 4544-3) 45.0 34.2-44.1 H [facility] HospitalMean Corpuscular Ezzbvx4815-60-23 11:46:00* Test Item Value Reference Range Interpretation Comments Mean Corpuscular Volume (test code = 787-2) 85.9 81-99 [facility] HospitalMean Corpuscular Ontqmlhvmb2193-46-58 11:46:00* Test Item Value Reference Range Interpretation Comments Mean Corpuscular Hemoglobin (test code = 785-6) 27.5 28-32 L [facility] HospitalMean Corpuscular Hemoglobin Concent 2019-09-12 11:46:00* Test Item Value Reference Range Interpretation Comments Mean Corpuscular Hemoglobin Concent (test code = 786-4) 32.0 31-35 [facility] HospitalRed Cell Distribution Dygkb8786-89-37 11:46:00* Test Item Value Reference Range Interpretation Comments Red Cell Distribution Width (test code = 11527-6) 15.5 11.7 -14.4 H [facility] HospitalPlatelet Lguei9796-39-72 11:46:00* Test Item Value Reference Range Interpretation Comments Platelet Count (test code = 777-3) 369 140-360 H [facility] HospitalNeutrophils (%) (Auto)2019-09-12 11:46:00 * Test Item Value Reference Range Interpretation Comments Neutrophils (%) (Auto) (test code = 57406-5) 84.4 38.7-80.0 H [facility] HospitalLymphocytes (%) (Auto)2019-09-12 11:46:00 * Test Item Value Reference Range Interpretation Comments Lymphocytes (%) (Auto) (test code = 736-9) 10.3 18.0-39.1 L [facility] HospitalMonocytes (%) (Auto)2019-09-12 11:46:00* Test Item Value Reference Range Interpretation Comments Monocytes (%) (Auto) (test code = 5905-5) 3.9 4.4-11.3 L [facility] HospitalEosinophils (%) (Auto)2019-09-12 11:46:00 * Test Item Value Reference Range Interpretation Comments Eosinophils (%) (Auto) (test code = 713-8) 0.2 0.0-6.0 [facility] HospitalBasophils (%) (Auto)2019-09-12 11:46:00* Test Item Value Reference Range Interpretation Comments Basophils (%) (Auto) (test code = 706-2) 0.2 0.0-1.0 [facility] HospitalIM GRANULOCYTES %2019-09-12 11:46:00* Test Item Value Reference Range Interpretation Comments IM GRANULOCYTES % (test code = IM GRANULOCYTES %) 1.0 0.0- 1.0 [facility] HospitalNeutrophils # (Auto)2019-09-12 11:46:00* Test Item Value Reference Range Interpretation Comments Neutrophils # (Auto) (test code = 751-8) 9.3 2.1-6.9 H [facility] HospitalLymphocytes # (Auto)2019-09-12 11:46:00* Test Item Value Reference Range Interpretation Comments Lymphocytes # (Auto) (test code = 36452-1) 1.1 1.0-3.2 [facility] HospitalMonocytes # (Auto)2019-09-12 11:46:00* Test Item Value Reference Range Interpretation Comments Monocytes # (Auto) (test code = 742-7) 0.4 0.2-0.8 [facility] HospitalEosinophils # (Auto)2019-09-12 11:46:00* Test Item Value Reference Range Interpretation Comments Eosinophils # (Auto) (test code = 711-2) 0.0 0.0-0.4 [facility] HospitalBasophils # (Auto)2019-09-12 11:46:00* Test Item Value Reference Range Interpretation Comments Basophils # (Auto) (test code = 704-7) 0.0 0.0-0.1 [facility] HospitalAbsolute Immature Granulocyte (auto 2019-09-12 11:46:00* Test Item Value Reference Range Interpretation Comments Absolute Immature Granulocyte (auto (jennifer t code = Absolute Immature Granulocyte (auto) 0.11 0-0.1 H [facility] HospitalCHEST SINGLE (PORTABLE)2019-09-12 11:45:00 [facility] [address] [place] [address] Patient Name: NINFA SIFUENTES MR #: [id number] : 1950 Age/Sex: 69/F Req #: [id number] Adm Physician: Ordered by: JOSESITO OSORIO C D STRIPPER Report #: [id number] Location: ER Room/Bed: Procedure: [id number] DX /CHEST SINGLE (PORTABLE) Exam Date: 09/12/19 Exam Ti me: 1120 REPORT STATUS: Signed E XAMINATION: CHEST SINGLE (PORTABLE) INDICATION: Chest pain COMPAR SHAREE: None FINDINGS: LINES/TUBES:EKG leads overlie the chest. LUNGS:The lungs are well-inflated. No focal consolidation or pulmonary edema. PLEURA:No pleural effusion or pneumothorax. MEDIASTINUM:The cardiomedi astinal silhouette appears normal in size and shape. BONES/SOFT TISSUES:No acute osseous injury. ABDOMEN:No free air under the diaphragm. IMPR ESSION: No focal pneumonia or pulmonary edema. Signed by: Sena Quiles MD on 09/12/2019 11:46 AM Dictated By: SENA QUILES MD 1146 Transcribed By: MARYA on 09/12/19 1146 COPY TO: JOSESITO OSORIO C D STRIPPER [U] XRAY KNEE 4 OR MORE VWS LEFT [id number] 2017-07-13 09:03:00Images acquired, not reported on this accession number. [facility]
--- OUTSIDE RECORDS SUMMARY | 2020-07-26 23:34 | XMS REPORT | Continuity of Care Document ---
Author Author Beth Radius [employer] Address Unknown Phone Unavailable Care Team Providers Care Quill Reamer Name Role Phone [facility] Unavailable Un available Problems No Data Provided for This Section Medications No Data Provided for This Section Allergies, Adverse Reactions, Alerts No Known Medication Allergies Immunizations No Data Provided for This Section Results No Data Provided for This Section Pathology Reports No Data Provided for This Section Diagnostic Reports No Data Provided for This Section Consultation Notes No Data Provided for This Section Discharge Summaries No Data Provided for This Section History and Physicals No Data Provided for This Section Vital Signs No Data Provided for This Section Encounters Location Location Details Encounter Type Encounter Number Reason For Visit Attending Provider ADM Date DC Date Status Source Outpatient [id number] [facility] 03/05/2019 [facility] [id number] Tiffany Gabriel 03/06/2019 Active [facility] [id number] Tiffany Gabriel 03/28/2019 Active [facility] [id number] Tiffany Gabriel 04/29/2019 Active [facility] Procedures No Data Provided for This Section Assessment and Plan No Data Provided for This Section Plan of Care No Data Provided for This Section Social History No Data Provided for This Section Family History No Data Provided for This Section Advance Directives No Data Provided for This Section Functional Status No Data Provided for This Section
[2020-07-26 23:37] VITALS: BP 145/65
== END 2020-07-26 23:25 | disposition home or self-care (01) ==
LOC: ER 22:33
DX: S81.812A Laceration without foreign body, left lower leg, initial encounter (principal); W01.198A Fall on same level from slipping, tripping and stumbling with subsequent striking against other object, initial encounter; Y93.01 Activity, walking, marching and hiking; Y92.008 Other place in unspecified non-institutional (private) residence as the place of occurrence of the external cause; I10 Essential (primary) hypertension; E78.5 Hyperlipidemia, unspecified; E03.9 Hypothyroidism, unspecified; I73.00 Raynaud's syndrome without gangrene; I25.2 Old myocardial infarction; Z95.5 Presence of coronary angioplasty implant and graft
CPT/HCPCS: 90471; 90714; 99284

== ENCOUNTER 2023-01-28 11:33 | Emergency (ER) | payer OTHER, MEDICARE ==
[~2023-01-28] VITALS: Ht 167.6 cm; Wt 61.2 kg
[2023-01-28] MEDS ORDERED: SODIUM CHLORIDE 0.9% 1000ML 1,000 ML IV STA (12:08)
[2023-01-28 12:51] LABS: BASOPHILS % 0.4 % (0.0-1.0); EOSINOPHILS # (AUTO) 0.1 (0.0-0.4); EOSINOPHILS % 1.1 % (0.0-6.0); HEMATOCRIT 39.5 % (34.2-44.1); HEMOGLOBIN 12.4 g/dL (12.0-16.0); LYMPHOCYTES # (AUTO) 1.2 (1.0-3.2); LYMPHOCYTES % 15.7 % (18.0-39.1); MEAN CORPUSCULAR HEMOGLOBIN 26.2 pg (28-32); MEAN CORPUSCULAR HGB CONC 31.4 g/dL (31-35); MEAN CORPUSCULAR VOLUME 83.5 fL (81-99); MONOCYTES # (AUTO) 0.6 (0.2-0.8); MONOCYTES % 8.5 % (4.4-11.3); NEUTROPHILS # (AUTO) 5.4 (2.1-6.9); NEUTROPHILS % 73.9 % (38.7-80.0); PLATELET COUNT 300 x10e3/uL (140-360); RED BLOOD COUNT 4.73 x10e6/uL (3.6-5.1); RED CELL DISTRIBUTION WIDTH 17.3 % (11.7-14.4)
[2023-01-28 13:05] LABS: INR 0.93; PARTIAL THROMBOPLASTIN TIME 28.1 seconds (23.8-35.5)
[2023-01-28 13:17] LABS: ALANINE AMINOTRANSFERASE 9 IU/L (0-55); ALBUMIN 4.1 g/dL (3.5-5.0); ALBUMIN/GLOBULIN RATIO 1.5 (0.8-2.0); ALKALINE PHOSPHATASE 95 IU/L (40-150); ANION GAP 15.9 mmol/L (8-16); BLOOD UREA NITROGEN 10 mg/dL (7-26); BUN/CREATININE RATIO 14 (6-25); CALCIUM 9.3 mg/dL (8.4-10.2); CARBON DIOXIDE 23 mmol/L (22-29); CHLORIDE 107 mmol/L (98-107); CREATINE KINASE 36 IU/L (29-168); GLUCOSE 94 mg/dL (74-118); MAGNESIUM 1.9 MG/DL (1.3-2.1); POTASSIUM 3.9 mmol/L (3.5-5.1); SODIUM 142 mmol/L (136-145)
[2023-01-28 14:30] VITALS: O2SAT 99
== END 2023-01-28 14:45 | disposition other institution (70) ==
LOC: ER 11:49
DX: R41.82 Altered mental status, unspecified (principal); S06.5X0A Traumatic subdural hemorrhage without loss of consciousness, initial encounter; S01.112A Laceration without foreign body of left eyelid and periocular area, initial encounter; V58.4XXA Person boarding or alighting a pick-up truck or van injured in noncollision transport accident, initial encounter; Y92.89 Other specified places as the place of occurrence of the external cause; I10 Essential (primary) hypertension; I48.91 Unspecified atrial fibrillation; I73.00 Raynaud's syndrome without gangrene
CPT/HCPCS: 36415; 70450; 71045; 72125; 80053; 82550; 82553; 83735; 83880; 84484; 85025; 85610; 85730; 99285; J7030